=== PATIENT | male | born 1935 | race Caucasian/White ===

== ENCOUNTER 2017-01-06 17:14 | Observation (INO) ==
[2017-01-06] MEDS ORDERED: Aspirin 81 MG TAB.CHEW PO ONE (17:31)
--- NOTE | 2017-01-06 17:38 | Emergency Department Note ---
Disposition Clinical Impression: Chest pain Qualifiers: Chest pain type: unspecified Qualified Code(s): R07.9 - Chest pain, unspecified Disposition: Admitted As Inpatient Condition: Fair Referrals: Bruce Mclean MD [Primary Care Provider] - Forms: ED Satisfaction Letter Time of Disposition: 18:53 General Adult HPI - General Chief complaint: ED Chest Pain Stated complaint: C/P-L arm pain Time Seen by Provider: 01/06/17 17:30 Source: patient, family Mode of arrival: ambulatory Limitations: no limitations Nursing Notes Reviewed: Yes Vital Signs Reviewed: Yes - History of Present Illness HPI Narrative: Patient is an 81-year-old male with a history of a triple bypass done in the and hypertension presenting to the ER for chest pain that started 2 hours ago. She describes the chest pain as left-sided and radiating into his left arm is aching 5 out of 10 when it is occurring. He is currently a symptomatically at this time. States the chest pain was worse with exertion. Denies nausea, vomiting, diaphoresis. Patient has had not had a cardiac workup for several years. Takes one baby aspirin a day. Denies any cough, fever, chills, recent travels, recent surgeries. The patient does have bilateral lower extremity swelling however according to his spouse and himself this is a chronic issue and he has been on Lasix for the past. He is no longer on Lasix. Pain Scale: 0 - Related Data Home Medications Medication Instructions Recorded Confirmed Amlodipine Besylate 01/13/16 Aspirin 01/13/16 01/13/16 Carvedilol 01/13/16 Hydrochlorothiazide 01/13/16 Lipitor 01/13/16 Previous Rx's Medication Instructions Recorded GuaiFENesin/Codeine [Robitussin 5 ml PO Q6HR PRN #120 ml 01/13/16 w/Codeine] Polyethylene Glycol 3350 [MiraLAX] 17 gm PO BID 3 Days 01/13/16 cephALEXin [Keflex] 500 mg PO QID #40 capsule 01/13/16 Allergies Allergy/AdvReac Type Severity Reaction Status Date / Time lisinopril Allergy Cough Verified 01/13/16 18:43 Sulfa (Sulfonamide Allergy Hives Verified 01/13/16 18:43 Antibiotics) All systems ED: reviewed and negative except as stated. Constitutional: Denies: fever, chills Cardiovascular: Reports: chest pain, dyspnea on exertion. Denies: palpitations , syncope Respiratory: Denies: cough, dyspnea, wheezes Gastrointestinal: Denies: abdominal pain, nausea, vomiting Musculoskeletal: Denies: back pain Integumentary: Denies: rash Past Medical History - Past Medical History Medical history: Reports: coronary artery disease, hypertension Psychiatric history: Reports: no psych history - Social History Smoking Status: Never smoker Smokeless Tobacco Status: No Alcohol use: Reports: none Physical Exam No acute distress at this time. He is sitting up in bed and speaking in full sentences. Patient is pleasant. - General Limitations: no limitations General appearance: alert, in no apparent distress - Head Head exam: atraumatic, normocephalic, normal inspection - Eye Eye exam: Present: normal appearance, PERRL, EOMI - ENT ENT exam: normal exam, normal oropharynx, mucous membranes moist - Neck Neck exam: Present: normal inspection, full ROM, trachea midline - Chest Chest inspection: Present: normal inspection, symmetric chest wall rise. Absent : tenderness - Respiratory Respiratory exam: Present: normal lung sounds bilaterally. Absent: respiratory distress - Cardiovascular Cardiovascular exam: Present: regular rate, normal rhythm, normal heart sounds - Abdominal Exam Abdominal exam: Present: soft, Non-Tender, normal bowel sounds. Absent: guarding, rebound, rigidity - Extremities Exam Extremities exam: Present: full ROM, pedal edema (Bilateral 1+ pitting edema.). Absent: tenderness, normal capillary refill, calf tenderness - Expanded Lower Extremity Exam Neurovascular/Tendon exam: Present: normal capillary refill. Absent: pulse deficit - Back Exam Back exam: Present: normal inspection, full ROM. Absent: tenderness - Neurological Exam Neurological exam: Present: alert, oriented X3 - Psychiatric Psychiatric exam: Present: normal affect, normal mood - Skin Skin exam: Present: warm, dry, intact, normal color Course Course Narrative: Patient is a 1-year-old male with a history of hypertension and CABG presenting with left-sided chest pain that has been going on 2 hours ago that is now resolved. My plan is to do a cardiac workup of the patient. - Reevaluation(s) Reevaluation #1: Patient's blood pressure still in the 190s over 110s. I gave him 10 mg of labetalol and is down to the 160s over 90s. Time: 18:48 Vital Signs Temperature 97.8 F 01/06/17 17:17 Pulse Rate 77 01/06/17 17:17 Respiratory Rate 18 01/06/17 17:17 Blood Pressure 188/100 01/06/17 17:17 O2 Sat by Pulse Oximetry 93 01/06/17 17:17 Temperature 97.8 F 01/06/17 17:17 Pulse Rate 58 01/06/17 18:47 Respiratory Rate 16 01/06/17 18:47 Blood Pressure 166/78 01/06/17 18:47 O2 Sat by Pulse Oximetry 95 01/06/17 18:47 Oxygen Delivery Oxygen Delivery Room Air Medical Decision Making - Medical Records Medical records reviewed: Yes I reviewed the patient's medical records. - Lab Data Lab results reviewed: Yes I reviewed the patient's lab results. Result diagrams: 01/06/17 17:22 01/06/17 17:22 Lab Results 01/06/17 01/06/17 01/06/17 Range/Units 17:22 17:22 17:22 WBC 4.0 L (4.3-11.1) K/mcL RBC 4.79 (4.19-5.50) M/mcL Hgb 14.1 (12.9-16.9) g/dL Hct 42.4 (37.5-50.1) % MCV 88.5 (83.0-100.0) fL MCH 29.4 (28.0-33.3) pg MCHC 33.3 (31.6-35.5) g/dL RDW 13.0 (11.5-14.5) % Plt Count 75 L (140-400) K/mcL MPV 12.0 (9.4-12.4) fL Immature Gran % 1.0 (0-4) % Seg Neutrophils % 22.1 % Lymphocytes % 54.2 % Monocytes % 20.0 % Eosinophils % 2.2 % Basophils % 0.5 % Neutrophils # 0.9 L (1.6-8.9) K/mcL Lymphocytes # 2.2 (0.6-4.6) K/mcL Monocytes # 0.8 (0.0-1.3) K/mcL Eosinophils # 0.1 (0.0-0.6) K/mcL Basophils # 0.0 (0.0-0.2) K/mcL Platelet Estimate Decreased L (Normal) Sodium 138 (136-145) mEq/L Potassium 4.1 (3.5-4.5) mEq/L Chloride 107 (98-109) mEq/L Carbon Dioxide 26 (19-29) mEq/L BUN 19 (8-26) mg/dL Creatinine 0.99 (0.72-1.25) mg/dL Est GFR ( Amer) > 60 (> 60) Est GFR (Non-Af Amer) > 60 (> 60) BUN/Creatinine Ratio 19 (6-26) Glucose 104 H (70-99) mg/dL Calculated Osmolality 289 (280-300) Calcium 9.3 (8.6-10.8) mg/dL Troponin I (0-0.03) ng/mL B-Natriuretic Peptide 106 H (0-100) pg/mL 01/06/17 Range/Units 17:22 WBC (4.3-11.1) K/mcL RBC (4.19-5.50) M/mcL Hgb (12.9-16.9) g/dL Hct (37.5-50.1) % MCV (83.0-100.0) fL MCH (28.0-33.3) pg MCHC (31.6-35.5) g/dL RDW (11.5-14.5) % Plt Count (140-400) K/mcL MPV (9.4-12.4) fL Immature Gran % (0-4) % Seg Neutrophils % % Lymphocytes % % Monocytes % % Eosinophils % % Basophils % % Neutrophils # (1.6-8.9) K/mcL Lymphocytes # (0.6-4.6) K/mcL Monocytes # (0.0-1.3) K/mcL Eosinophils # (0.0-0.6) K/mcL Basophils # (0.0-0.2) K/mcL Platelet Estimate (Normal) Sodium (136-145) mEq/L Potassium (3.5-4.5) mEq/L Chloride (98-109) mEq/L Carbon Dioxide (19-29) mEq/L BUN (8-26) mg/dL Creatinine (0.72-1.25) mg/dL Est GFR ( Amer) (> 60) Est GFR (Non-Af Amer) (> 60) BUN/Creatinine Ratio (6-26) Glucose (70-99) mg/dL Calculated Osmolality (280-300) Calcium (8.6-10.8) mg/dL Troponin I 0.02 (0-0.03) ng/mL B-Natriuretic Peptide (0-100) pg/mL - Radiology Data Radiology results reviewed: Yes I reviewed the patient's radiology results. Chest X-Ray 01/06/17 17:31 IMPRESSION: 1. No acute cardiopulmonary disease. D/ / 01/06/2017 18:12:22 Dianne Sunshine MD / juan carlos Interpreting Provider: Dianne Sunshine MD - EKG Data EKG #1 EKG attestation: Yes I reviewed and interpreted this EKG. EKG results narrative: I interpret this EKG is sinus rhythm at a rate of 76. Normal axis. ID is [id number], QRS is 88, QT is 355 these are within normal limits. EKG has nonspecific ST wave abnormalities however no signs of ischemia or infarction. This is unchanged when compared to the EKG done on 12/11/2014. Attestation Statement - Attestation Attestation: I examined this patient and my medical decision-making was reviewed with the Resident Physician. I agree with the documented findings, disposition and treatment plan as described except to the extent set forth below. Patient to ED with chest pain radiating to the left arm. History of quadruple bypass in 1993. He has had stress tests and her Symptoms but he states it has been many years. His pain resolved prior to his arrival here. On exam he sitting on the side of the bed in no acute distress with clear lungs. Plan. Cardiac workup. Admit to medicine.
[2017-01-06 18:06] LABS: Basophils % 0.5 %; Eosinophils # 0.1 K/mcL (0.0-0.6); Eosinophils % 2.2 %; Hematocrit 42.4 % (37.5-50.1); Hemoglobin 14.1 g/dL (12.9-16.9); Lymphocytes # 2.2 K/mcL (0.6-4.6); Lymphocytes % 54.2 %; Mean Corpuscular HGB Conc 33.3 g/dL (31.6-35.5); Mean Corpuscular Hemoglobin 29.4 pg (28.0-33.3); Mean Corpuscular Volume 88.5 fL (83.0-100.0); Monocytes # 0.8 K/mcL (0.0-1.3); Neutrophils # 0.9 K/mcL (1.6-8.9); Platelet Count 75 K/mcL (140-400); Red Blood Count 4.79 M/mcL (4.19-5.50); Segmented Neutrophils % 22.1 %
[2017-01-06 18:15] LABS: BUN/Creatinine Ratio 19 (6-26); Blood Urea Nitrogen 19 mg/dL (8-26); Calcium 9.3 mg/dL (8.6-10.8); Carbon Dioxide 26 mEq/L (19-29); Chloride 107 mEq/L (98-109); Glucose 104 mg/dL (70-99); Osmolality,Calculated 289 (280-300); Potassium 4.1 mEq/L (3.5-4.5); Sodium 138 mEq/L (136-145); eGFR For African Americans > 60 (> 60); eGFR For Non-African Americans > 60 (> 60)
[2017-01-06] MEDS ORDERED: *HR* Labetalol 20 MG/4 ML SYRINGE IVP ONE ×2 (18:27→18:29)
[2017-01-06 18:36] LABS: Platelet Estimate Decreased (Normal)
[2017-01-06] MEDS ORDERED: Acetaminophen 325 MG TABLET PO PRN (20:31)
--- NOTE | 2017-01-06 20:38 | Internal Med History&Physical ---
<Fabiana Coto - Last Filed: 01/06/17 21:28> Date of Encounter: 01/06/17 Time of Encounter: 20:00 Assessment and Plan (1) Chest pain Current visit: Yes Status: Acute - Left chest and left upper arm ache, aggravated by exertion and alleviated by rest, similar to angina in the past. - Likely stable angina but patient does have significant CAD history and risk factors. - First troponin in ED is negative and EKG showed no significant ischemic change compared to prior one from 12/11/14. - Currently no chest pain/discomfort. - Continue to trend troponin. - Continue aspirin, Coreg, Lipitor. Add nitroglycerin prn chest pain. - Admit to hospital for close monitoring with telemetry and further work-up including stress test and echocardiogram. Total time spent on admission: 40 minutes. Qualifiers: Chest pain type: unspecified Qualified Code(s): R07.9 - Chest pain, unspecified (2) Hypertensive urgency Current visit: Yes Status: Acute - BP as high as 199/90 in ED. - Patient reports having white coat hypertension and has not gotten his PM dose of Coreg yet. - Slightly improved after labetalol IV in ED. - Continue home dose Coreg and Norvasc. Add hydralazine IV prn SBP > 160. - Continue to monitor. (3) CAD (coronary artery disease) Current visit: Yes Status: Chronic - S/p 4-vessel CABG in 1992. - Continue aspirin, Coreg, Lipitor. Qualifiers: Coronary Disease-Associated Artery/Lesion type: [place] artery [place] vs. transplanted heart: [place] heart Associated angina: with unspecified angina Qualified Code(s): I25.119 - Atherosclerotic heart disease of [place] coronary artery with unspecified angina pectoris (4) Hyperlipidemia Current visit: Yes Status: Chronic - Check lipid panel. - Continue Lipitor. Qualifiers: Hyperlipidemia type: unspecified Qualified Code(s): E78.5 - Hyperlipidemia , unspecified (5) GERD (gastroesophageal reflux disease) Current visit: Yes Status: Chronic - Patient reports occasional acid reflex and heartburn at home but not on any medication. - Pepcid during hospital stay. Qualifiers: Esophagitis presence: esophagitis presence not specified Qualified Code(s) : K21.9 - Gastro-esophageal reflux disease without esophagitis (6) DVT prophylaxis Current visit: Yes Status: Acute - SQ heparin. Internal Medicine - H&P: HPI Chief complaint: Left arm and chest discomfort Admitted From: Emergency Dept Plans for Post Hospital Care: Home History of present illness: Mr. Ambrocio is a 81 year old male with PMH of HTN, HLD, CAD s/p 4-V CABG 1992. Patient presented with complaint of left arm and chest discomfort. 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 The discomfort is aggravated by movement and alleviated by rest. Patient states the discomfort is similar to the angina he had before his CABG. Patient denies diaphoresis, lightheadedness, syncope, palpitation, worsening edema or fatigue. The discomfort resolved before patient came to [facility] ED. Patient reports last stress test (exercise) was done more than 5 years ago and he recalls no echocardiogram done in the past. Patient reports having white coat hypertension and his usual SBP is between 120s and 130s. Patient also has known leukopenia and thrombocytopenia for which he is seeing hematology at [place] and work-up were negative so far. In ED, patient has troponin 0.02 and EKG showed no significant ischemic change compared to prior EKG on 12/11/14. Patient was noted to have BP as high as 199/ 90 in ED. Patient received aspirin 324 mg and IV labetalol 15 mg in ED. Past Med Surg Social Fam HX - Past Medical History Source: patient, old records reviewed Medical history: coronary artery disease, hyperlipidemia, hypertension Psychiatric history: no psych history - Past Surgical History Surgical History: angioplasty/stent (Carotid angioplasty), carotid endarterectomy, coronary bypass (CABG), knee replacement (left) - Social History Smoking Status: Former smoker Smokeless Tobacco Status: No Alcohol use: occasionally - Family History Father Living Status: Hx Family Cardiac Disorders: Yes ([place]) Hx Family Neurologic Disorders: Yes (CV[place]) Mother Living Status: Hx Family Cardiac Disorders: Yes ([place]) Brother Living Status: Hx Family Neurologic Disorders: Yes (CVA) Internal Medicine - H&P: Meds Amlodipine Besylate 10 mg PO DAILY 01/13/16 [History] Aspirin Enteric Coated [Aspirin EC] 81 mg PO DAILY 01/13/16 [History] Atorvastatin Calcium [Lipitor] 20 mg PO HS 01/13/16 [History] Carvedilol [Coreg] 25 mg PO BID 01/13/16 [History] Multivitamin [Multi-Day Vitamins] 1 each PO DAILY 01/06/17 [History] 3 Allergy/AdvReac Type Severity Reaction Status Date / Time lisinopril Allergy Cough Verified 01/13/16 18:43 Sulfa (Sulfonamide Allergy Hives Verified 01/13/16 18:43 Antibiotics) All Systems PM: A 10-system review of systems was performed and is negative for pertinent findings except as documented above in the HPI. - Constitutional Constitutional: no anorexia, no chills, no fever(s) - EENT Eyes: no change in vision Ears: no decreased hearing Nose, mouth and throat: no dysphagia, no odynophagia - Cardiovascular Cardiovascular ROS IM: as per HPI, chest pain, no lightheadedness, no palpitations, no syncope - Respiratory Respiratory: cough (dry cough), dyspnea, no hemoptysis, no excessive phlegm production - Gastrointestinal Gastrointestinal: heartburn, no abdominal pain, no diarrhea, no hematochezia, no melena, no nausea, no vomiting - Genitourinary Genitourinary ROS male: no difficulty urinating, no dysuria, no hematuria - Musculoskeletal Musculoskeletal ROS IM: no arthralgias, no myalgias - Integumentary Integumentary IM: no pruritus, no rash - Neurological Neurological ROS: no focal weakness, no numbness, no tingling - Hematologic/Lymphatic Hematologic/Lymphatic: easy bruising, no easy bleeding - Constitutional Vitals: Temp Pulse Resp BP Pulse Ox 0 F L 59 18 165/83 98 01/06/17 19:57 01/06/17 19:05 01/06/17 19:57 01/06/17 19:57 01/06/17 19:05 General appearance: Present: cooperative, A&O X 3, no acute distress, answers questions appropriately - Head Head exam: Present: atraumatic, normocephalic - Eye Eye exam: Present: EOMI, PERRL, conjuntiva pink, sclera anicteric - Neck Neck exam general surgery: Present: supple, trachea midline. Absent: lymphadenopathy - Respiratory Respiratory exam: Present: CTAB. Absent: accessory muscle use, rales, rhonchi, wheezes - Cardiovascular Cardiovascular exam: Present: RRR, +S1, +S2. Absent: diastolic murmur, gallop, rubs, systolic murmur - GI/Abdominal GI/Abdominal exam: Present: normal bowel sounds, soft, no peritoneal signs. Absent: distended, tenderness - Extremities Exam Extremities exam: Present: pedal edema (Mild BLE non-pitting edema), warm, radial pulses palpable and symmetrical. Absent: calf tenderness, cyanotic - Neurological Exam Neurological exam: Present: CN II-XII intact, oriented X3, no focal deficits. Absent: pronater drift, facial droop, speech deficit - Skin Skin exam: Present: dry, intact, warm Internal Med - H&P Results - Labs CBC & Chem 7: 01/06/17 17:22 01/06/17 17:22 - EKG Data Prior EKG available for review: yes When compared to previous EKG: there is no significant change Interpretation IM: normal EKG EKG comments: 01/06/17 21:29 No significant ischemic change compared to prior EKG from 12/11/14 <Marcello Jerez - Last Filed: 01/06/17 22:55> Date of Encounter: 01/06/17 Internal Medicine - H&P: HPI History of present illness: Mr. Ambrocio is a 81 year old male All Systems PM: A 10-system review of systems was performed and is negative for pertinent findings except as documented above in the HPI. - Constitutional Vitals: Temp Pulse Resp BP Pulse Ox 97.6 F 62 16 176/75 96 01/06/17 20:43 01/06/17 20:43 01/06/17 20:43 01/06/17 20:43 01/06/17 20:43 Internal Med - H&P Results - Labs CBC & Chem 7: 01/06/17 17:22 01/06/17 17:22 - Attending Attestation I examined this patient and my medical decision-making was reviewed with the Resident Physician, Dr. Fabiana Coto. I agree with the documented findings, disposition and treatment plan as described except to the extent set forth below. I have independently obtained history and examined the patient and my findings are summarized below: Patient is currently chest pain-free. On exam he is in no acute distress. Heart examination reveals regular rate and rhythm S1-S2 no murmurs. Lungs are clear. Troponin is negative. EKG reviewed personally shows normal sinus rhythm at 76 bpm with [address] depressions in leads 1 and aVL. Unchanged from previous EKG. Plan: Observation, trend troponin. Treat hypertensive urgency with Coreg and Norvasc and as needed hydralazine. We will obtain a stress test in the morning.
[2017-01-06] MEDS ORDERED: Nitroglycerin 0.4 MG TAB.SUBL SL PRN (21:42)
[2017-01-06] MEDS: *HR* Heparin 5,000 UNIT/ML VIAL SQ SCH ×2 (21:59→22:08)
[2017-01-06] MEDS: Famotidine 20 MG TABLET PO SCH (21:59)
[2017-01-07] MEDS: *HR* Heparin 5,000 UNIT/ML VIAL SQ SCH ×2 (05:33→14:52)
[2017-01-07] MEDS ORDERED: Regadenoson 0.4 MG/5 ML SYRINGE IVP ONE (05:46)
[2017-01-07 07:40] LABS: Hematocrit 43.7 % (37.5-50.1); Hemoglobin 14.2 g/dL (12.9-16.9); Mean Corpuscular HGB Conc 32.5 g/dL (31.6-35.5); Mean Corpuscular Hemoglobin 28.7 pg (28.0-33.3); Mean Corpuscular Volume 88.3 fL (83.0-100.0); Red Blood Count 4.95 M/mcL (4.19-5.50)
[2017-01-07 07:42] LABS: Platelet Count 82 K/mcL (140-400)
[2017-01-07 08:43] LABS: BUN/Creatinine Ratio 14 (6-26); Blood Urea Nitrogen 13 mg/dL (8-26); Calcium 9.4 mg/dL (8.6-10.8); Carbon Dioxide 24 mEq/L (19-29); Chloride 108 mEq/L (98-109); Chol/HDL Ratio 3.1 (0-4.9); Cholesterol 110 mg/dL (< 200); Glucose 101 mg/dL (70-99); HDL Cholesterol 35 mg/dL (40-59); LDL Cholesterol,Calculated 59 mg/dL (0-99); Osmolality,Calculated 288 (280-300); Potassium 3.6 mEq/L (3.5-4.5); Sodium 139 mEq/L (136-145); Triglycerides 82 mg/dL (< 150); eGFR For African Americans > 60 (> 60); eGFR For Non-African Americans > 60 (> 60)
[2017-01-07 09:05] LABS: Thyroid Stimulating Hormone 3.236 mcIU/mL (0.350-4.840)
[2017-01-07] MEDS: Aspirin Enteric Coated 81 MG Tablet PO SCH (09:56)
[2017-01-07] MEDS: Famotidine 20 MG TABLET PO SCH ×2 (09:57→20:27)
[2017-01-07] MEDS: amLODIPine 5 MG TABLET PO SCH (09:57)
--- NOTE | 2017-01-07 11:44 | Cardiology Consult Note ---
Date of Encounter: 01/07/17 Time of Encounter: 11:34 Assessment and Plan (1) Abnormal stress test Current Visit: Yes Status: Acute Low level pharmacologic stress test showed a perfusion defect during stress involving the basal-distal lateral wall and anterolateral wall representing mild to moderate ischemia. Gated EF 65%. Typical chest pain symptoms described. He is currently pain free. LHC R/B/A discussed. He repoted he has thrombocytopenia and underwent work-up in the past and was told he may need PLT infusion prior to procedures. Plt 82 today. 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 Discussed with Dr. Gil, recommends hematology consult for preparation for LHC. He also needs better blood pressure control. Noted to have allergy to lisinopril d/t cough. Add losartan. Plan for possible LHC in AM. (2) Chest pain Current Visit: Yes Status: Acute Now chest pain free. Typical chest pain described. Troponin negative x 3. EKG with no acute changes. Denies recent work-up. Qualifiers: Chest pain type: unspecified Qualified Code(s): R07.9 - Chest pain, unspecified (3) CAD (coronary artery disease) Current Visit: Yes Status: Chronic H/o 4V CABG in 1992. Last stress test was 4-5 years ago[address] with Dr. Regalado. Continue asa, statin, and bb. Qualifiers: Coronary Disease-Associated Artery/Lesion type: [place] artery [place] vs. transplanted heart: [place] heart Associated angina: with unspecified angina Qualified Code(s): I25.119 - Atherosclerotic heart disease of [place] coronary artery with unspecified angina pectoris (4) Hypertension Current Visit: Yes Status: Acute Add losartan. Continue norvasc and carvedilol. Low sodium diet. Qualifiers: Hypertension type: essential hypertension Qualified Code(s): I10 - Essential (primary) hypertension Discussion w patient/family: The assessment and plan as outlined above was discussed with the patient and/or family members who expressed understanding and agreement. All questions were answered. Thank you for involving us in the care of your patient. Please call with any questions. History of Present Illness Consult date: 01/07/17 Requesting physician: Tiffanie Carreon Consult reason: Abnormal stress test Chief complaint: Chest pain History of present illness: Mr. Ambrocio is a 81 year old male with a history of CAD s/p 4V CABG, carotid artery disease s/p left CEA in 2004, HTN, HLD, solitary kidney, and bicytopenia who presented with chest pain. He c/o left arm aching when he woke up from his sleep the morning before last. 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 Regalado, yesterday. He had an EKG that was found to be normal. Said he felt better. That evening he was walking to his mailbox when he developed left chest pain and SOB. He walked back to his house and sat down when his symptoms improved. Later he went to his adventist to help clean when he developed pain again so he presented to the ER. Initial work-up included troponin that was found to negative. EKG shows SR with no acute ST changes. He underwent stress test this morning that was found to be abnormal. Cardiology consulted for further evaluation. Past Med Surg Social Fam HX - Past Medical History Medical history: coronary artery disease, hyperlipidemia, hypertension, other ( thrombocytopenia, solitary kidney. ) Psychiatric history: no psych history - Past Surgical History Surgical History: angioplasty/stent, carotid endarterectomy, coronary bypass ( CABG), knee replacement - Social History Smoking Status: Former smoker Smokeless Tobacco Status: No Alcohol use: occasionally Drug use: none - Family History Father Living Status: Age at : 56 Cause of : [place] Hx Family Cardiac Disorders: Yes ([place]) Hx Family Neurologic Disorders: Yes (CVA) Mother Living Status: Age at : 78 Cause of : [place] Hx Family Cardiac Disorders: Yes ([place]) Brother Living Status: Age at : 78 Cause of : [place] Hx Family Cardiac Disorders: Yes ([place]) Hx Family Respiratory Disorders: No Hx Family Cancer: No Hx Family GI Disorders: No Hx Family Genitourinary Disorders: No Hx Family Endocrine Disorder: No Hx Family Musculoskeletal Disorders: Yes (arthritis) Hx Family Neuromuscular Disorders: No Hx Family Neurologic Disorders: Yes (CVA) Hx Family HEENT Disorders: No Hx Family Autoimmune Disorders: No Hx Family Reproductive Disorders: No Hx Family Psychosocial Disorders: No Hx Family Medical Disorders: No Medications and Allergies Amlodipine Besylate 10 mg PO DAILY 01/13/16 [History] Aspirin Enteric Coated [Aspirin EC] 81 mg PO DAILY 01/13/16 [History] Atorvastatin Calcium [Lipitor] 20 mg PO HS 01/13/16 [History] Carvedilol [Coreg] 25 mg PO BID 01/13/16 [History] Multivitamin [Multi-Day Vitamins] 1 each PO DAILY 01/06/17 [History] 3 Allergy/AdvReac Type Severity Reaction Status Date / Time lisinopril Allergy Cough Verified 01/13/16 18:43 Sulfa (Sulfonamide Allergy Hives Verified 01/13/16 18:43 Antibiotics) All Systems Review: A 10-system review of systems was performed and is negative for pertinent findings except as documented above in the HPI. Physical Examination Vital Signs, Last 4 Hours Temp Pulse Resp BP Pulse Ox 01/07/17 10:53 97.6 F 60 16 178/78 94 General: Conversant, No Apparent Distress HEENT: Atraumatic, Normocephaly, Mucus Membranes Moist Neck: No JVD, Normal carotid pulses Cardiac: Reg Rate and Rhythm, Normal S1 and S2, No Murmur Lungs: Normal Breath Sounds, No Wheeze, Rales, Rhonchi Neuro: Alert and responsive, No focal deficits noted Abdomen: Soft, Non-Tender Skin: No rashes noted on visualized skin Musculoskeletal: No Chest Wall Tenderness Extremities: No Clubbing, No Cyanosis, No Edema, Normal Pulses Results 01/07/17 07:01 01/07/17 07:01 Lab Results 01/06/17 01/07/17 01/07/17 23:13 07:01 07:01 WBC 3.5 L Hgb 14.2 Hct 43.7 Plt Count 82 L Sodium 139 Potassium 3.6 Chloride 108 Carbon Dioxide 24 BUN 13 Creatinine 0.90 Glucose 101 H Calcium 9.4 Troponin I 0.01 TSH 3.236 01/07/17 07:01 WBC Hgb Hct Plt Count Sodium Potassium Chloride Carbon Dioxide BUN Creatinine Glucose Calcium Troponin I 0.03 TSH - Imaging and Cardiology Stress Test: report reviewed - EKG Interpretation EKG results cardiology: personally reviewed (Sr with no acute ST changes.) Consult Discharge Plan - Plan Referrals: Bruce Mclean MD [Primary Care Provider] - 01/16/17 10:15 am
--- NOTE | 2017-01-07 12:08 | Nuclear Medicine Stress Report ---
Low Level Regadenoson Name: Panfilo Ambrocio Date of Study: 01/07/2017 Date: 1935 Ht: 66.0 in Medical Record#: [id number] Age: 81 Wt: 163.0 lb Gender: Male Order #: [id number] Location: [facility] Room: [facility] Supervising Provider: Sheba Mathews CNP Reading Physician: Pavithra Adan DO Ordering Physician: Kristin Fitzgerald CNP Primary Care Physician: Bruce Mclean MD Stress Technologist: Raya Jack INTEGRATION ANALYST, CCT Nuisance Wildlife Control Operator: Liz Lizarraga Indications: Chest Pain Impression: There is a perfusion defect during stress involving the basal-distal lateral wall and anterolateral wall representing mild-moderate ischemia. Low level exercise/ pharmacologic stress ECG is negative for ischemia at level of heart rate achieved. Gated EF = 65%. Findings communicated to ordering provider. History: Hypertension Hypercholesteremia History of Coronary Artery Bypass Surgery Stress Test Summary: Stress Test Type: Low level pharmacologic Regadenoson 0.4mg/5ml given IV Baseline Information: Initial Heart Rate: 69 Blood Pressure: 158/64 Stress Information: Test Terminated Due to (primary): As per protocol Maximum Blood Pressure: 172/80 Maximum Heart Rate: 90 Percent Maximum Heart Rate Achieved: 65 Double Product: [id number] Symptoms: No chest symptoms Nuclear Summary: SPECT myocardial perfusion imaging using Tc99m Sestamibi given intravenously was performed at rest and following cardiac stress testing. The resting images were obtained following initial dose of 10.8 mCi. Following stress an additional dose of 35.1 mCi was given at peak exercise or 30 seconds post regadenoson infusion. Medication Given: Time Medication Dose Units Route Findings: Stress Note * Resting ECG demonstrated normal sinus rhythm with borderline first degree AVB. * Low level exercise/ pharmacologic stress ECG is negative for ischemia at level of heart rate achieved. * Patient had no chest pain during stress. * No arrhythmias were noted during stress. Infrequent PVCs during rest and recovery. Hemodynamic responses * Normal hemodynamic responses to low level exercise plus pharmacologic stress. Study Quality * Study quality was fair. Gated EF % * Gated EF = 65%. Left Ventricle * The left ventricle is not dilated. TID * No evidence of transient ischemic dilatation. Lung Uptake * There is no evidence of increase lung uptake. PERFUSION * There is a mild-moderate intensity perfusion defect during stress involving the basal-mid and partially distal lateral wall and anterolateral wall. * There is a possible fixed defect of near absent intensity involving the basal inferior wall. Findings may represent infarct. * Other segments demonstrate normal rest and stress perfusion. Updated by Pavithra Adan on 01/07/2017 9:57:31 AM electronically signed on 01/07/2017 10:03:30 AM with status of Final
--- NOTE | 2017-01-07 15:12 | Oncology Inp Consult Note ---
<Tiffany Conte E - Last Filed: 01/07/17 14:59> Date of Encounter: 01/07/17 Time of Encounter: 14:15 Assessment and Plan (1) Thrombocytopenia Status: Chronic Assessment and plan: Current platelets 82,000-this level should be adequate for patient to have heart catheterization. He should continue to follow with Hematology at [facility]. (2) Neutropenia Status: Chronic Assessment and plan: Upon discharge should continue to f/u with Hematology at [facility]. He will be seen by Dr. Tyler today also. Qualifiers: Neutropenia type: unspecified Qualified Code(s): D70.9 - Neutropenia, unspecified - Data of Consult Patient: new to practice Consult date: 01/07/17 Requesting Physician: Kristin Fitzgerald CNP Primary Care Provider: Bruce Mclean MD - Consult Narrative Reason for consult: Neutropenia and thrombocytopenia History of present illness: Mr. Ambrocio is a 81 year old male with a history of CAD, hyperlipidemia, hypertension, diverticulitis, from the cytopenia and neutropenia who was recently admitted through the emergency room with chest pain. The patient reports that he was seen yesterday morning at the cardiology office at that time he felt great and his exam was negative. He and his then had lunch and Yumits and tocario. Upon arriving at home he walk to the mailbox to get the mail and during that time he started having left-sided chest pain that was radiating into his left arm with pain increasing on exertion. He also has a history of having a carotid endarterectomy. He was a former smoker. Stress test indicated perfusion defect during stress involving basal distal lateral wall and anterior lateral wall with [id number] ischemia. His gated ejection fraction was 65%. D-Dimer [id number]. We have been asked to see the patient regarding the pancytopenia and neutropenia in relation to him having a heart catheterization. The patient reports that he has had neutropenia and from a cytopenia for about 8 years with a gradual decline. About 3 years ago he had a knee replacement at [facility] and at that time surgeon requested further evaluation by hematology prior to his having surgery. He was established that time with [facility] hematology. Most recently he was seen at [facility] by Dr. Sellers from [place]. He reports that he has had a bone marrow and MRI of spleen that were both negative. We do not have these reports to review. He states to date they have not found the causative factor. He denies ever having abnormal bleeding or needing to have platelet transfusion. He has had no major infections-just occasional sinus infection or bronchitis. He states he was treated several months ago for diverticulitis. WBC today 3.5, Platelets, 82,000. ANC on 01/06/17 900. Past Med Surg Social Fam HX - Past Medical History Source: patient, old records reviewed, obtained from family Medical history: coronary artery disease, hyperlipidemia, hypertension, other ( thrombocytopenia, neutropenia, diverticulitis, solitary kidney) Psychiatric history: no psych history - Past Surgical History Surgical History: angioplasty/stent, carotid endarterectomy, coronary bypass ( CABG), knee replacement - Social History Smoking Status: Former smoker Smokeless Tobacco Status: No Alcohol use: occasionally Drug use: none Occupational status: retired Current living situation: Home Activity Level: Independent ambulation Recent Out of Country Travel Within the Last 8 Weeks: No Exposure or Possible Exposure to Illness During Travel: No - Family History Father Living Status: Age at : 56 Cause of : [place] Hx Family Cardiac Disorders: Yes (DE) Hx Family Neurologic Disorders: Yes (CVA) Mother Living Status: Age at : 78 Cause of : [place] Hx Family Cardiac Disorders: Yes (DE) Brother Living Status: Age at : 78 Cause of : [place] Hx Family Cardiac Disorders: Yes (DE) Hx Family Respiratory Disorders: No Hx Family Cancer: No Hx Family GI Disorders: No Hx Family Genitourinary Disorders: No Hx Family Endocrine Disorder: No Hx Family Musculoskeletal Disorders: Yes (arthritis) Hx Family Neuromuscular Disorders: No Hx Family Neurologic Disorders: Yes (CVA) Hx Family HEENT Disorders: No Hx Family Autoimmune Disorders: No Hx Family Reproductive Disorders: No Hx Family Psychosocial Disorders: No Hx Family Medical Disorders: No Medications and Allergies Amlodipine Besylate 10 mg PO DAILY 01/13/16 [History] Aspirin Enteric Coated [Aspirin EC] 81 mg PO DAILY 01/13/16 [History] Atorvastatin Calcium [Lipitor] 20 mg PO HS 01/13/16 [History] Carvedilol [Coreg] 25 mg PO BID 01/13/16 [History] Multivitamin [Multi-Day Vitamins] 1 each PO DAILY 01/06/17 [History] 3 Allergy/AdvReac Type Severity Reaction Status Date / Time lisinopril Allergy Cough Verified 01/13/16 18:43 Sulfa (Sulfonamide Allergy Hives Verified 01/13/16 18:43 Antibiotics) Additional comments: Denies chest pain or shortness of breath. Oncology - Exam - Constitutional Vitals: Temp Pulse Resp BP Pulse Ox 97.6 F 60 16 178/78 94 01/07/17 10:53 01/07/17 10:53 01/07/17 10:53 01/07/17 10:53 01/07/17 10:53 General appearance: average body habitus, cooperative, no acute distress - Head Head exam: Present: atraumatic, normal inspection, normocephalic - ENT ENT exam: Present: mucous membranes moist - Neck Neck exam: Present: normal inspection - Respiratory Respiratory exam: Present: CTAB - Cardiovascular Cardiovascular exam: Present: RRR - GI/Abdominal GI/Abdominal exam: Present: normal bowel sounds, soft (non tender) - Extremities Exam Extremities exam: Present: normal capillary refill, normal inspection (no edema) - Neurological Exam Neurological exam: Present: alert, oriented X3 - Psychiatric Psychiatric exam: Present: normal affect, normal mood Oncology - Results Labs: Short CBC 01/07/17 Range/Units 07:01 WBC 3.5 L (4.3-11.1) K/mcL Hgb 14.2 (12.9-16.9) g/dL Hct 43.7 (37.5-50.1) % Plt Count 82 L (140-400) K/mcL BMP 01/07/17 07:01 Sodium 139 Potassium 3.6 Chloride 108 Carbon Dioxide 24 BUN 13 Creatinine 0.90 Glucose 101 H Calcium 9.4 Cardiac Enzymes 01/06/17 01/07/17 Range/Units 23:13 07:01 Troponin I 0.01 0.03 (0-0.03) ng/mL Consult Discharge Plan - Plan Referrals: Bruce Mclean MD [Primary Care Provider] - 01/16/17 10:15 am <Reagan Tyler - Last Filed: 01/08/17 07:50> Date of Encounter: 01/08/17 Assessment and Plan (1) Thrombocytopenia Status: Chronic Assessment and plan: I seen and examined Mr. Ambrocio and agree with Ms. Conte's assessment. 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 Per report, recent bone marrow aspirate and biopsy were unrevealing. This likely represents underlying hypersplenism/autoimmune related process although certainly an evolving low- grade MDS could be consideration. In either case, he may proceed to cardiac catheterization and intervention as deemed necessary by the cardiology team. He may receive full anticoagulation from my perspective. His platecount is adequate. Antiplatelet therapy can be utilized with no reservation from my perspective. He should return to the care of Dr. Sellers at [facility] upon discharge. We will continue to assist in his care while hospitalized here. - Data of Consult Requesting Physician: Kristin Fitzgerald CNP Primary Care Provider: Bruce Mclean MD Oncology - Exam - Constitutional Vitals: Temp Pulse Resp BP Pulse Ox 97.8 F 60 16 162/73 96 01/08/17 03:44 01/08/17 03:44 01/08/17 03:44 01/08/17 03:44 01/08/17 03:44 Oncology - Results Labs: Short CBC 01/08/17 Range/Units 03:11 WBC 3.9 L (4.3-11.1) K/mcL Hgb 13.2 (12.9-16.9) g/dL Hct 40.2 (37.5-50.1) % Plt Count 77 L (140-400) K/mcL Neutrophils # 1.1 L (1.6-8.9) K/mcL BMP 01/07/17 01/08/17 07:01 03:11 Sodium 139 141 Potassium 3.6 3.6 Chloride 108 110 H Carbon Dioxide 24 23 BUN 13 20 Creatinine 0.90 0.97 Glucose 101 H 89 Calcium 9.4 9.1 Cardiac Enzymes 01/07/17 Range/Units 07:01 Troponin I 0.03 (0-0.03) ng/mL
[2017-01-07 15:38] LABS: INR 1.2; Prothrombin Time 13.1 Seconds (9.4-12.1)
--- NOTE | 2017-01-07 15:39 | Internal Med Progress Note ---
Date of Encounter: 01/07/17 Time of Encounter: 15:00 - Assessment and plan (1) Chest pain Current Visit: Yes Status: Acute Assessment and plan: Patient denies chest pain or shortness of breath at this time. Chest x-ray negative. Stress test abnormal-cardiology has been brought on board. Decision was made to proceed with a left heart catheter tomorrow. We will continue to monitor the patient's blood pressures. Cleared for procedure per oncology/ hematology. History of CABG 4 in 1992. Echocardiogram revealing ejection fraction of 60% with mild diastolic dysfunction. Patient euvolemic on examination. Nothing by mouth at midnight, left heart catheter tomorrow pending clinical outcomes. ITS Impressions Chest X-Ray 01/06/17 17:31 IMPRESSION: 1. No acute cardiopulmonary disease. D/ / 01/06/2017 18:12:22 Dianne Sunshine MD / juan carlos Interpreting Provider: Dianne Sunshine MD Low Level Regadenoson Date of Study: 01/07/2017 Impression: There is a perfusion defect during stress involving the basal-distal lateral wall and anterolateral wall representing mild-moderate ischemia. Low level exercise/ pharmacologic stress ECG is negative for ischemia at level of heart rate achieved. Gated EF = 65%. Findings communicated to ordering provider. Echo with Saline Contrast Date of Study: 01/07/2017 Impressions: LVEF 60%. Normal left ventricular size and systolic function. There is evidence of mild diastolic dysfunction of the left ventricle. Normal right ventricular size and function. Mild aortic regurgitation. Mild mitral regurgitation. No pulmonary hypertension. There is no evidence of a PFO with agitated saline contrast. (2) Abnormal stress test Current Visit: Yes Status: Acute (3) Leukopenia Current Visit: Yes Status: Chronic Assessment and plan: Chronic for this patient. Is followed at [facility]. and patient states that he has had an extensive workup including several MRIs and a bone marrow biopsy all unremarkable. Seen by oncology and cleared for left heart catheter for tomorrow. (4) Thrombocytopenia Current Visit: Yes Status: Chronic Assessment and plan: Chronic, stable, no signs of active bleeding. See prior note for leukopenia (5) CAD (coronary artery disease) Current Visit: Yes Status: Chronic Qualifiers: Coronary Disease-Associated Artery/Lesion type: bypass graft [place] vs. transplanted heart: [place] heart Associated angina: with unspecified angina Qualified Code(s): I25.709 - Atherosclerosis of coronary artery bypass graft(s) , unspecified, with unspecified angina pectoris (6) Hypertension Current Visit: Yes Status: Chronic Assessment and plan: Uncontrolled. At home, patient is on carvedilol 25 mg twice a day, amlodipine 10 mg daily. Cardiology has added losartan 12.5 mg daily as well as hydralazine IV as needed. SHAUNNA inhibitor cough noted. Patient stating he gets worked up when he has to have a lot of blood work and while he is in the hospital. This could also be a contributing factor. When I saw him, he had just received his losartan dosage 10-15 minutes prior, we will continue to trend and adjust medications as indicated. Qualifiers: Hypertension type: essential hypertension Qualified Code(s): I10 - Essential (primary) hypertension (7) Hypertensive urgency Current Visit: Yes Status: Acute (8) Hyperlipidemia Current Visit: Yes Status: Chronic Assessment and plan: Lipid panel unremarkable, recommend continue statin. Low-cholesterol diet. Qualifiers: Hyperlipidemia type: unspecified Qualified Code(s): E78.5 - Hyperlipidemia , unspecified (9) GERD (gastroesophageal reflux disease) Current Visit: Yes Status: Chronic Assessment and plan: Denies current symptoms. Qualifiers: Esophagitis presence: esophagitis presence not specified Qualified Code(s) : K21.9 - Gastro-esophageal reflux disease without esophagitis (10) DVT prophylaxis Current Visit: Yes Status: Acute Assessment and plan: Thrombocytopenia can be caused by/worsened by heparin, heparin discontinued at this time, will place IPCs. - Subjective Interval history: Patient seen and examined. On examination, patient resting supine in bed conversing with his . Patient stating that he is drained. He denies pain or shortness of breath at this time. He is endorsing a normal appetite. - Constitutional Vitals: Temp Pulse Resp BP Pulse Ox 97.8 F 56 18 180/68 94 01/07/17 15:07 01/07/17 15:07 01/07/17 15:07 01/07/17 15:07 01/07/17 15:07 General appearance: Present: cooperative, A&O X 3, pleasant, no acute distress, answers questions appropriately - Head Head exam: Present: atraumatic, normocephalic - Eye Eye exam: Present: PERRL, conjuntiva pink, sclera anicteric Pupils: Present: PERRL - Neck Neck exam general surgery: Present: supple, trachea midline. Absent: lymphadenopathy - Respiratory Respiratory exam: Present: CTAB. Absent: accessory muscle use, rales, respiratory distress, rhonchi, wheezes - Cardiovascular Cardiovascular exam: Present: RRR, +S1, +S2. Absent: diastolic murmur, gallop, rubs, systolic murmur - GI/Abdominal GI/Abdominal exam: Present: normal bowel sounds, soft, no peritoneal signs. Absent: distended, tenderness - Extremities Exam Extremities exam: Present: warm, radial pulses palpable and symmetrical. Absent : calf tenderness, cyanotic, pedal edema - Neurological Exam Neurological exam: Present: alert, CN II-XII intact, normal gait, oriented X3, no focal deficits, strengths equal and symetr throughout. Absent: pronater drift, facial droop, speech deficit - Skin Skin exam: Present: dry, intact, pallor, warm Internal Medicine: Result - Labs CBC & Chem 7: 01/07/17 07:01 01/07/17 07:01 Labs: Short CBC 01/07/17 Range/Units 07:01 WBC 3.5 L (4.3-11.1) K/mcL Hgb 14.2 (12.9-16.9) g/dL Hct 43.7 (37.5-50.1) % Plt Count 82 L (140-400) K/mcL [facility] 01/07/17 07:01 Sodium 139 Potassium 3.6 Chloride 108 Carbon Dioxide 24 BUN 13 Creatinine 0.90 Glucose 101 H Calcium 9.4 Cardiac Enzymes 01/06/17 01/07/17 Range/Units 23:13 07:01 Troponin I 0.01 0.03 (0-0.03) ng/mL Consult Discharge Plan - Plan Referrals: Bruce Mclean MD [Primary Care Provider] - 01/16/17 10:15 am
[2017-01-07 15:40] LABS: Activated Partial Thrombo Time 33.4 Seconds (26.0-36.0)
--- NOTE | 2017-01-07 18:33 | Electrocardiograph Report ---
[address] [address] Test Date: 2017-01-06 Pat Name: Panfilo Ambrocio Department: 104 Room: 3B Gender: M Internet Sourcer: JOSEPHINE : 1935 Requested By: Brenton Veliz Order Number: [id number] Reading MD: Pavithra Adan Measurements Intervals [place] Rate: 76 P: 92 VT: 192 QRS: -7 QRSD: 88 T: 54 QT: 355 QTc: 385 Interpretive Statements SINUS RHYTHM Electronically Signed On 01-07-2017 18:31:54 EDT by Pavithra Adan
[2017-01-08 03:57] LABS: Hemoglobin 13.2 g/dL (12.9-16.9); Mean Platelet Volume 12.2 fL (9.4-12.4)
[2017-01-08 03:59] LABS: Basophils % 0.5 %; Eosinophils # 0.1 K/mcL (0.0-0.6); Eosinophils % 2.1 %; Hematocrit 40.2 % (37.5-50.1); Immature Granulocytes % 0.3 % (0-4); Immature Platelets 7.8 % (1.1-6.1); Lymphocytes # 1.8 K/mcL (0.6-4.6); Lymphocytes % 45.9 %; Mean Corpuscular HGB Conc 32.8 g/dL (31.6-35.5); Mean Corpuscular Volume 88.4 fL (83.0-100.0); Monocytes # 0.9 K/mcL (0.0-1.3); Monocytes % 23.5 %; Neutrophils # 1.1 K/mcL (1.6-8.9); Red Blood Count 4.55 M/mcL (4.19-5.50); Red Cell Distribution Width 13.1 % (11.5-14.5); Segmented Neutrophils % 27.7 %
[2017-01-08 04:05] LABS: INR 1.2
[2017-01-08 04:14] LABS: Platelet Count 77 K/mcL (140-400)
[2017-01-08 04:17] LABS: BUN/Creatinine Ratio 21 (6-26); Blood Urea Nitrogen 20 mg/dL (8-26); Calcium 9.1 mg/dL (8.6-10.8); Carbon Dioxide 23 mEq/L (19-29); Chloride 110 mEq/L (98-109); Glucose 89 mg/dL (70-99); Osmolality,Calculated 294 (280-300); Potassium 3.6 mEq/L (3.5-4.5); Sodium 141 mEq/L (136-145); eGFR For African Americans > 60 (> 60); eGFR For Non-African Americans > 60 (> 60)
[2017-01-08 04:48] LABS: Platelet Estimate Decreased (Normal)
[2017-01-08 04:49] LABS: Large Platelets Present (Not Present)
[2017-01-08] MEDS: Aspirin Enteric Coated 81 MG Tablet PO SCH (08:05)
[2017-01-08] MEDS: amLODIPine 5 MG TABLET PO SCH (08:06)
[2017-01-08] MEDS: Famotidine 20 MG TABLET PO SCH (08:07)
--- NOTE | 2017-01-08 09:22 | Pre-Sedation Evaluation ---
Pre-sedation evaluation - Pre-sedation checklist Date of procedure: 01/08/17 Procedure: heart cath Recent Vitals: Last Vital Signs Temp 97.8 F 01/08/17 07:45 Pulse 63 01/08/17 07:45 Resp 16 01/08/17 07:45 BP 179/82 01/08/17 07:45 Pulse Ox 95 01/08/17 07:45 H&P (including ROS) documented in medical record: Yes Previous reaction to sedatives/anesthetics: No Dietary Status: NPO after Midnight Dentition: No loose teeth or bridges ASA Classification *see protocol: CLASS II-Mild systemic disease Plan of Care: Pt appropriate candidate for procedure/moderate/conscious sedation , Risks/benefits of procedure/sedation discussed w/ patient/family
[2017-01-08 10:30] LABS: Hepatitis B Surface Antigen Nonreactive (Nonreactive); Hepatitis C Virus Antibody Nonreactive (Nonreactive)
--- NOTE | 2017-01-08 11:18 | Event Note ---
Date of Encounter: 01/08/17 Time of Encounter: 11:13 - Cardiology Event Note Mr. Ambrocio is awaiting [facility] today for abnormal stress test. He denies recurrent chest pain. C/o abdominal bloating and gas pain this morning that is now relieved. B/p remains elevated after receiving losartan. Will increase dose. IV hydralizine ordered PRN. Patient and denies questions. brings bypass card from 1992. He had a CARMEN-mLAD, SVG-dLAD, SVG -RCA, SVG- PL CX.
[2017-01-08 11:21] LABS: HIV-1&2 Antibody & p24 Ag Nonreactive (Nonreactive)
--- NOTE | 2017-01-08 13:36 | Internal Med Progress Note ---
Date of Encounter: 01/08/17 Time of Encounter: 12:30 - Assessment and plan (1) Chest pain Current Visit: Yes Status: Acute Assessment and plan: Patient denies chest pain or shortness of breath at this time. Chest x-ray negative. Stress test abnormal-cardiology has been brought on board- plan is for a left heart catheter later today. We will continue to monitor the patient' s blood pressures. Cleared for procedure per oncology/hematology. History of CABG 4 in 1992. Echocardiogram revealing ejection fraction of 60% with mild diastolic dysfunction. Patient euvolemic on examination. ITS Impressions Chest X-Ray 01/06/17 17:31 IMPRESSION: 1. No acute cardiopulmonary disease. D/ / 01/06/2017 18:12:22 Dianne Sunshine MD / juan carlos Interpreting Provider: Dianne Sunshine MD Low Level [place] Date of Study: 01/07/2017 Impression: There is a perfusion defect during stress involving the basal-distal lateral wall and anterolateral wall representing mild-moderate ischemia. Low level exercise/ pharmacologic stress ECG is negative for ischemia at level of heart rate achieved. Gated EF = 65%. Findings communicated to ordering provider. Echo with Saline Contrast Date of Study: 01/07/2017 Impressions: LVEF 60%. Normal left ventricular size and systolic function. There is evidence of mild diastolic dysfunction of the left ventricle. Normal right ventricular size and function. Mild aortic regurgitation. Mild mitral regurgitation. No pulmonary hypertension. There is no evidence of a PFO with agitated saline contrast. (2) Abnormal stress test Current Visit: Yes Status: Acute (3) Leukopenia Current Visit: Yes Status: Chronic Assessment and plan: Chronic for this patient. Is followed at [facility]. and patient states that he has had an extensive workup including several MRIs and a bone marrow biopsy all unremarkable. Seen by oncology and cleared for left heart catheter (4) Thrombocytopenia Current Visit: Yes Status: Chronic Assessment and plan: Chronic, stable, no signs of active bleeding. See prior note for leukopenia (5) CAD (coronary artery disease) Current Visit: Yes Status: Chronic Qualifiers: Coronary Disease-Associated Artery/Lesion type: bypass graft [place] vs. transplanted heart: [place] heart Associated angina: with unspecified angina Qualified Code(s): I25.709 - Atherosclerosis of coronary artery bypass graft(s) , unspecified, with unspecified angina pectoris (6) Hypertension Current Visit: Yes Status: Chronic Assessment and plan: Uncontrolled. At home, patient is on carvedilol 25 mg twice a day, amlodipine 10 mg daily. Cardiology has added losartan 12.5 mg daily which was ineffective - will increase to 25mg and monitor. Utilize hydralazine IV as needed. SHAUNNA inhibitor cough noted. Patient stating he gets worked up when he has to have a lot of blood work and while he is in the hospital. This could also be a contributing factor. Patient is stating that he is exhausted and sleep deprived. Qualifiers: Hypertension type: essential hypertension Qualified Code(s): I10 - Essential (primary) hypertension (7) Hypertensive urgency Current Visit: Yes Status: Resolved (8) Hyperlipidemia Current Visit: Yes Status: Chronic Assessment and plan: Lipid panel unremarkable, recommend continue statin. Low-cholesterol diet. Qualifiers: Hyperlipidemia type: unspecified Qualified Code(s): E78.5 - Hyperlipidemia , unspecified (9) GERD (gastroesophageal reflux disease) Current Visit: Yes Status: Chronic Assessment and plan: Denies current symptoms. Qualifiers: Esophagitis presence: esophagitis presence not specified Qualified Code(s) : K21.9 - Gastro-esophageal reflux disease without esophagitis (10) DVT prophylaxis Current Visit: Yes Status: Acute Assessment and plan: Thrombocytopenia can be caused by/worsened by heparin, heparin discontinued yesterday and replaced with IPCs. - Subjective Interval history: Patient seen and examined. On examination, patient resting supine in bed conversing with his and guests. Patient stating that he is drained and exhausted and has not really slept in two days. He denies pain or shortness of breath at this time stating he recently received pain medication. He states he is hungry and denies concerns or questions regarding his upcoming [facility]. - Constitutional Vitals: Temp Pulse Resp BP Pulse Ox 97.8 F 66 16 172/74 96 01/08/17 11:31 01/08/17 13:07 01/08/17 11:31 01/08/17 13:07 01/08/17 11:31 General appearance: Present: cooperative, A&O X 3, pleasant, no acute distress, answers questions appropriately - Head Head exam: Present: atraumatic, normocephalic - Eye Eye exam: Present: PERRL, conjuntiva pink, sclera anicteric Pupils: Present: PERRL - Neck Neck exam general surgery: Present: supple, trachea midline. Absent: lymphadenopathy - Respiratory Respiratory exam: Present: CTAB. Absent: accessory muscle use, rales, respiratory distress, rhonchi, wheezes - Cardiovascular Cardiovascular exam: Present: RRR, +S1, +S2. Absent: diastolic murmur, gallop, rubs, systolic murmur - GI/Abdominal GI/Abdominal exam: Present: normal bowel sounds, soft, no peritoneal signs. Absent: distended, tenderness - Extremities Exam Extremities exam: Present: warm, radial pulses palpable and symmetrical. Absent : calf tenderness, cyanotic, pedal edema - Neurological Exam Neurological exam: Present: alert, CN II-XII intact, oriented X3, no focal deficits, strengths equal and symetr throughout. Absent: pronater drift, facial droop, speech deficit - Skin Skin exam: Present: dry, intact, normal color, warm Internal Medicine: Result - Labs CBC & Chem 7: 01/08/17 03:11 01/08/17 03:11 Labs: Short CBC 01/08/17 Range/Units 03:11 WBC 3.9 L (4.3-11.1) K/mcL Hgb 13.2 (12.9-16.9) g/dL Hct 40.2 (37.5-50.1) % Plt Count 77 L (140-400) K/mcL Neutrophils # 1.1 L (1.6-8.9) K/mcL BMP 01/08/17 03:11 Sodium 141 Potassium 3.6 Chloride 110 H Carbon Dioxide 23 BUN 20 Creatinine 0.97 Glucose 89 Calcium 9.1 - ABG Interpretation ABG results: PT/INR, D-dimer PT 13.0 Seconds (9.4-12.1) H 01/08/17 03:11 D-Dimer 647 ng/mLFEU (0-500) H 01/07/17 15:00 - Impressions Impressions Abdomen Ultrasound 01/08/17 08:30 IMPRESSION: 1. Examination is limited due to patient body habitus as well as overlying bowel gas. 2. Echogenic liver compatible with hepatic steatosis. There is suggestion of intrahepatic biliary ductal dilatation. Correlation with LFTs is recommended. 3. Gallbladder sludge without evidence of cholelithiasis or acute cholecystitis. 4. No splenomegaly. D/ / 01/08/2017 09:27:00 Onelia Santillan MD / bcaer Interpreting Provider: Onelia Santillan MD Consult Discharge Plan - Plan Referrals: Bruce Mclean MD [Primary Care Provider] - 01/16/17 10:15 am
[2017-01-08] MEDS ORDERED: Heparin 1,000 UNITS/500 mL NS 500 ML ONE (14:20)
[2017-01-08] MEDS ORDERED: *HR* Heparin 10,000 UNIT/10 ML VIAL ONE (14:20)
[2017-01-08] MEDS ORDERED: Nitroglycerin 1,000 MCG/10 ML VIAL IV ONE (14:20)
[2017-01-08] MEDS ORDERED: 0.9 % Sodium Chloride 1,000 ML ONE ×2 (14:20→15:25)
[2017-01-08] MEDS ORDERED: *HR* Midazolam HCl 2 MG/2 ML VIAL ONE (15:25)
[2017-01-08] MEDS ORDERED: *HR* FentaNYL (PF) 100 MCG/2 ML VIAL ONE (15:25)
--- NOTE | 2017-01-08 16:25 | Invasive Diagnostic Lab Proc ---
Name: Panfilo Ambrocio Date of Study: 01/08/2017 Date: 1935 Ht: 66.9in Medical Record#: [id number] Age: 81 Wt: 158.73lb Gender: Male BSA: 1.83 Order #: [id number] BMI: 24.91 Physicians Procedure Physician: Skinny Hernandez MD, [facility] Referring MD: Referring MD: Staff Name Position Time In Sites, Danae RT (R) Monitor 03:34 PM Eva Blank RT (R) Scrub 03:34 PM Jack Jalloh RN Anesthesia Technician 03:34 PM Indications Indication Abnormal Test - Stress Procedures Performed Procedure L HRT ART/GRFT ANGIO Pre-Procedure Checklist Informed consent is complete signed and on chart. H&P is on chart. ID band is on and ID verified with patient. Patient NPO for procedure The procedure was described for the patient and questions were answered. Blood Pressure: 179/82 ECG is on chart. Rhythm: NSR Plan of Care Patient will tolerate the procedure without complications. Adequate level of comfort will be maintained. Hemodynamics will remain stable Patient will recover from procedure without complications. Respiratory function will be maintained. Cardiac rhythm will remain stable. Patient temperature will be maintained. Patient and/or family have verbalized understanding of the procedure. Patient Education Intravenous Access Time IV Size Location DC'd Fluid/Drip Rate Units RN 18g 1 05/22" Patent On Arrival Rt Antecubital Allergies SULFA (sulfonamide) lisinopril Vital Signs Time BP (mmHg) HR (bpm) O2 Sat. RR (bpm) LOC 179 / 82 63 95 % 16 03:35 PM / % 5 = Fully awake and oriented or at pre-proc level 03:30 PM 179 / 88 75 99 % 22 03:33 PM 190 / 86 75 100 % 17 03:36 PM 154 / 68 70 99 % 22 03:39 PM 145 / 73 66 99 % 20 03:42 PM 148 / 70 68 99 % 22 03:45 PM 149 / 69 67 99 % 29 03:48 PM 161 / 76 69 99 % 13 03:51 PM 161 / 70 68 99 % 23 03:54 PM 160 / 76 58 99 % 22 03:57 PM 162 / 69 69 100 % 19 04:00 PM 166 / 81 75 99 % 25 04:03 PM 169 / 75 75 99 % 14 04:06 PM 171 / 82 71 98 % 14 04:09 PM 170 / 82 71 97 % 20 04:12 PM 160 / 72 % Procedural Medications Time Medication Dose Units Method Given By 03:34 PM Oxygen 2 L/min nasal cannula Jack Jalloh RN 03:35 PM Versed 2 mg Intravenous Jack Jalloh RN 03:35 PM Fentanyl 25 mcg Intravenous Jack Jalloh RN 03:41 PM Lidocaine 2% 15 ml Subcutaneous Skinny Hernandez MD, [facility] ASA Classification: CLASS II- Mild systemic disease (i.e. well-controlled diabetes, hypertension, asthma, cigarette smoking) Mp Score Preprocedure Postprocedure Activity 2- Moves 4 extremities sustained head lift Activity 2- Moves 4 extremities sustained head lift Circulation 2- SBP +/= 20 points of pre-anesthetic level Circulation 2- SBP +/= 20 points of pre-anesthetic level Consciousness 2- Awake and alert oriented x 3 Consciousness 2- Awake and alert oriented x 3 O2 Saturation 2- Able to maintain O2 satruation of 92% on room air O2 Saturation 2- Able to maintain O2 satruation of 92% on room air Respiratory 2- Able to deep breathe and cough well Respiratory 2- Able to deep breathe and cough well Total Score 10 Total Score 10 Contrast Agent: Isovue Diagnostic Contrast: 82 ml Total Contrast: 82 ml Fluoro Dose: 159 mGy Procedure Log Time Note Enter By 03:29 PM CathStat 03:29 PM Vitals capture started with the following parameters, Patient=Adult, Interval=3 min, Initial Mvhpdzyg=622 mmHg, Deflation Rate=5 mmHg, Cuff placed on Left Arm 03:29 PM Recorded ECG: HR=77 Condition=Condition 1 03:30 PM HR=75 bpm, YTLJ=179/88 mmhg, SpO2=99.0 %, Resp=22 B/min 03:33 PM HR=75 bpm, MBAR=633/86 mmhg, DsI4=065.0 %, Resp=17 B/min 03:34 PM Pt arrived to labor relations teacher 1 at 15:34 tsites 03:34 PM Danae Azevedo RT (R) Position: Monitor Time in: 15:34 tsites 03:34 PM Eva Blank RT (R) Position: Scrub Time in: 15:34 tsites 03:34 PM Jack Jalloh RN Position: Anesthesia Technician Time in: 15:34 tsites 03:34 PM Patient charges- Angio tray pack, Navilyst 3mm J, Pulse Oximetry and ACIST tubing and transducer tsites 03:34 PM Case Delayed No tsites 03:34 PM Physician arrived 15:34 tsites 03:34 PM Meet and greet completed tsites 03:34 PM Sign in performed according to hospital policy. tsites 03:34 PM Procedure start 15:34 tsites 03:34 PM Hair removed from procedure site in procedure lab using clippers. Bilateral groin prepped with Chloraprep by Si\\, safety strap applied then patient was draped. Skin intact. tsites 03:35 PM Time: 15:34 Oxygen on at 2 L/min per nasal cannula by Jack Jalloh RN tsites 03:35 PM Time: 15:35 Patient comfortable and pain free: Yes tsites 03:35 PM Time: 15:35LOC: 5 = Fully awake and oriented or at pre-proc level tsites 03:35 PM Clinical Presentation: Stable angina tsites 03:35 PM Time: 15:35 Versed 2 mg Intravenous Given by Jack Jalloh RN tsites 03:35 PM Time: 15:35 Fentanyl 25 mcg Intravenous Given by Jack Jalloh RN tsites 03:35 PM Pressure channel 2 zeroed. 03:36 PM HR=70 bpm, BVGL=579/68 mmhg, SpO2=99.0 %, Resp=22 B/min 03:37 PM Pressure channel 2 zeroed. 03:39 PM HR=66 bpm, UOTP=347/73 mmhg, SpO2=99 %, Resp=20 B/min 03:40 PM Time out performed according to hospital policy tsites 03:41 PM Time: 15:41 15 ml Lidocaine 2% to right groin Subcutaneous Given by Skinny Hernandez MD, [facility] tsites 03:42 PM HR=68 bpm, LKTN=155/70 mmhg, SpO2=99 %, Resp=22 B/min 03:42 PM Access obtained by percutaneous puncture. 5Fr 10cm Terum[place] sheath placed in right Femoral artery. [id number] tsites 03:43 PM 5Fr FR 4 catheter inserted over the wire [facility] tsites 03:43 PM 0.035 145cm Navilyst 3mmJ wire [id number] tsites 03:45 PM HR=67 bpm, XNJO=846/69 mmhg, SpO2=99 %, Resp=29 B/min 03:45 PM SVG to the LAD angio performed in multiple views. tsites 03:46 PM SVG to the 1st OM angio performed in multiple views. tsites 03:48 PM HR=69 bpm, RHHF=588/76 mmhg, SpO2=99 %, Resp=13 B/min 03:48 PM RCA angiography performed in multiple views. tsites 03:48 PM 0.035 260cm Navilyst 3mmJ wire [id number] tsites 03:48 PM Catheter removed tsites 03:48 PM 5Fr IM catheter inserted over the wire [id number] tsites 03:49 PM Recorded Pressure: Ao, HR=67, Condition=Condition 1 (Aorta) Ao 146/78/109 03:50 PM Time: 15:35 Patient comfortable and pain free: Yes tsites 03:50 PM Left ROBERT to the LAD angio performed in multiple views. tsites 03:51 PM Catheter removed tsites 03:51 PM 5Fr FL 4 catheter inserted over the wire DN tsites 03:51 PM HR=68 bpm, ISBS=327/70 mmhg, SpO2=99.0 %, Resp=23 B/min 03:51 PM Coronary Dominance: right tsites 03:51 PM Lesion found in Proximal RCA. Pre Stenosis: 100 Pre TOSHIA Flow: tsites 03:51 PM Right Coronary, Right Posterior Descending Arteries with Right Posterolateral and Acute Marginal branches with 100 % stenosis. If graft is supplying this area, 0 % stenosis tsites 03:52 PM LCA angiography performed in multiple views. tsites 03:52 PM Recorded Pressure: Ao, HR=70, Condition=Condition 1 (Aorta) Ao 143/73/105 03:52 PM Lesion found in Proximal LAD. Pre Stenosis: 100 Pre TOSHIA Flow: tsites 03:53 PM Lesion found in Proximal Circumflex. Pre Stenosis: 90 Pre TOSHIA Flow: tsites 03:53 PM Lesion found in Mid Circumflex. Pre Stenosis: 90 Pre TOSHIA Flow: tsites 03:53 PM 5Fr Pigtail catheter inserted over the wire DN tsites 03:53 PM Proximal Left Anterior Descending Coronary Artery with 100% stenosis. If graft is supplying this territory, 0 % stenosis. tsites 03:53 PM Circumflex, Obtuse Marginal, Left Posterior Descending, and Left Posterolateral Coronary Arteries with 90 % stenosis. If graft is supplying this area, 0 % stenosis tsites 03:54 PM HR=58 bpm, JBCS=529/76 mmhg, SpO2=99 %, Resp=22 B/min 03:54 PM Catheter selectively placed in left ventricle tsites 03:54 PM Bolus angiogram of left Ventricle complete: 10 ml/sec for a total of 30 mls tsites 03:54 PM Recorded Pressure: LV, HR=69, Condition=Condition 1 (Left Ventricle) LV 170/-1/10 03:54 PM Recorded Pressure: LV, HR=70, Condition=Condition 1 (Left Ventricle) LV 78/-54/-38 03:55 PM Recorded Pressure: LV, Ao, HR=75, Condition=Condition 1 (Left Ventricle) LV 181/46/97, (Aorta) Ao 160/60/99 03:57 PM HR=69 bpm, UYOO=683/69 mmhg, NlX7=745.0 %, Resp=19 B/min 03:57 PM 5Fr MPA catheter inserted over the wire [id number] tsites 03:57 PM SVG to the RPLV angio performed in multiple views. tsites 03:58 PM Catheter removed tsites 04:00 PM HR=75 bpm, HWST=234/81 mmhg, SpO2=99 %, Resp=25 B/min 04:02 PM Bolus angiogram of right Femoral complete: 2 ml/sec for a total of 4 mls tsites 04:03 PM HR=75 bpm, RYDG=726/75 mmhg, SpO2=99 %, Resp=14 B/min 04:06 PM HR=71 bpm, LGGR=369/82 mmhg, SpO2=98 %, Resp=14 B/min 04:09 PM HR=71 bpm, GERL=461/82 mmhg, SpO2=97 %, Resp=20 B/min 04:09 PM Procedure completed at 16:09 tsites 04:09 PM Sign out completed: Radiation Dose 159 mGy Fluoro Time: 4.0 Isovue 370 - 200ml contrast 82 ml given by Skinny Hernandez MD, [facility]. Complications: NoneCardiac Rehab Consult needed: NoConfirmed administered medications: Yes tsites 04:09 PM Isovue 370 - 200ml,1 Bottle(s) used. tsites 04:09 PM Arterial sheath pulled, Mynx closure device used and was Successful S/N. tsites 04:09 PM Post ECG NSR tsites 04:10 PM Post Blood Pressure 170/82 tsites 04:10 PM 16:10 Post Pulses Bilateral DP & PT 1+ tsites 04:10 PM Information taught Cardiac Cath and Mynx tsites 04:10 PM Education needs Procedure, Plan of Care, and Responsibilities of Patient in Care tsites 04:10 PM Learning barriers :None tsites 04:10 PM Education Methods Verbal tsites 04:10 PM Education evaluation Able to repeat information tsites 04:10 PM Site status No bleeding/hematoma - Rt Groin as reported by Eav Blank RT (R) at 16:10 tsites 04:10 PM Opsite applied tsites 04:11 PM Delay to floor No tsites 04:11 PM Patient out of room: 16:11 tsites 04:11 PM Family placed in consult room. tsites 04:12 PM LWIH=098/72 mmhg 04:12 PM Report given to lilliam MURRAY Pt taken to 3B Room #14. 16:12 tsites 04:12 PM Delay to floor No tsites 04:12 PM Patient out of room: 16:12 tsites Complications Complication None Hemodynamics Pressures Site Systolic/A Wave Diastolic/V Wave Mean AO 146 78 109 AO 143 73 105 LV 170 -1 10 LV 78 -54 -38 LV 181 46 97 AO 160 60 99 Post Procedure Information Blood Pressure: 170/82 mmHg Rhythm: NSR Post procedural instructions were given Closure Device Time Device Success/Fail 01/08/2017 4:13:00 PM MynxGrip Successful Site Checks Time Location Status Staff Sheath In? Note 04:10 PM Rt Groin No bleeding/hematoma Eva Blank RT (R) Pulses Time Site Pre-Procedure Post-Procedure Note Bilateral radial 2+ Bilateral DP & PT 1+ 4:10:00 PM Bilateral DP & PT 1+ Updated by Danae Azevedo RT (R) on 01/08/2017 4:17:58 PM Danae Azevedo RT electronically signed on 01/08/2017 4:19:43 PM with status of Final
--- NOTE | 2017-01-08 16:27 | Event Note ---
Date of Encounter: 01/08/17 Time of Encounter: 16:30 - Cardiology Event Note sp 1992 CABG. Chronic thrombocytopenia. Stress - anterolateral ischemia CAR[place] mid LAD patent with competitive flow from the SVG to distal LAD SVG distal LAD patent with 70% proximal stenosis Distal LAD with collaterals to the R PLB SVG OM patent but OM is small and diffusely diseased SVG distal RCA with 95% proximal stenosis. Contralateral collaterals Severe [place] CAD No indication for revascularization at this time. Recommend Imdur 60mg daily and NTG SL 0.4mg Q5min prn chest pain.
--- NOTE | 2017-01-08 16:40 | Event Note ---
Date of Encounter: 01/08/17 Time of Encounter: 16:35 - Cardiology Event Note Mr. Ambrocio is s/p LHC. No complications. Findings as described in event note below by Dr. Hernandez. Imdur added. D/t thrombocytopenia recommend watching overnight. Cardiology will sign off. Recommend patient follow with his cardioloist Dr. Regalado in one week. Call with questions.
--- NOTE | 2017-01-08 17:55 | Discharge Summary ---
Date of Encounter: 01/08/17 Time of Encounter: 17:30 - Discharge Diagnosis (1) Chest pain Priority: Primary Status: Resolved Comments: Patient denied chest pain or shortness of breath at this time at time of discharge. Chest x-ray negative. Stress test abnormal-cardiology has been brought on board- left heart catheter which revealed severe CAD however no areas for intervention were indicated. Recommend medical management with Imdur and follow up outpatient (2) Abnormal stress test Priority: Primary Status: Acute (3) Leukopenia Priority: Secondary Status: Chronic Comments: Chronic, stable, has been following outpatient with Christy (4) Thrombocytopenia Priority: Secondary Status: Chronic (5) CAD (coronary artery disease) Priority: Secondary Status: Chronic Qualifiers: Coronary Disease-Associated Artery/Lesion type: bypass graft [place] vs. transplanted heart: [place] heart Associated angina: with unspecified angina Qualified Code(s): I25.709 - Atherosclerosis of coronary artery bypass graft(s) , unspecified, with unspecified angina pectoris (6) Hypertension Priority: Secondary Status: Chronic Comments: Uncontrolled. At home, patient is on carvedilol 25 mg twice a day, amlodipine 10 mg daily. Cardiology added losartan 12.5 mg daily which was ineffective- then increased to 25mg. SHAUNNA inhibitor cough noted. Patient stating he gets worked up when he has to have a lot of blood work and while he is in the hospital. This could also be a contributing factor. Patient is stating that he is exhausted and sleep deprived. Recommended blood pressure checks at home, close outpatient follow-up. Qualifiers: Hypertension type: essential hypertension Qualified Code(s): I10 - Essential (primary) hypertension (7) Hypertensive urgency Priority: Primary Status: Resolved (8) Hyperlipidemia Priority: Secondary Status: Chronic Comments: Lipid panel unremarkable, recommend continue statin. Low-cholesterol diet. Qualifiers: Hyperlipidemia type: unspecified Qualified Code(s): E78.5 - Hyperlipidemia , unspecified (9) GERD (gastroesophageal reflux disease) Priority: Secondary Status: Chronic Comments: Denied current symptoms Qualifiers: Esophagitis presence: esophagitis presence not specified Qualified Code(s) : K21.9 - Gastro-esophageal reflux disease without esophagitis (10) DVT prophylaxis Priority: Primary Status: Acute Comments: Thrombocytopenia can be caused by/worsened by heparin, heparin discontinued while admitted and replaced with IPCs. - Discharge Medications Prescriptions: Nitroglycerin 0.4 mg SL Q5MIN PRN #30 PRN Reason: Chest Pain Isosorbide MONOnitrate (24 HR) [Imdur] 60 mg PO DAILY #30 Losartan [Cozaar] 25 mg PO DAILY #30 tab Home Medications: Amlodipine Besylate 10 mg PO DAILY 01/13/16 [History] Aspirin Enteric Coated [Aspirin EC] 81 mg PO DAILY 01/13/16 [History] Atorvastatin Calcium [Lipitor] 20 mg PO HS 01/13/16 [History] Carvedilol [Coreg] 25 mg PO BID 01/13/16 [History] Multivitamin [Multi-Day Vitamins] 1 each PO DAILY 01/06/17 [History] Isosorbide MONOnitrate (24 HR) [Imdur] 60 mg PO DAILY #30 01/08/17 [Rx] Losartan [Cozaar] 25 mg PO DAILY #30 tab 01/08/17 [Rx] Nitroglycerin 0.4 mg SL Q5MIN PRN #30 01/08/17 [Rx] Allergies/Adverse Reactions: 3 Allergy/AdvReac Type Severity Reaction Status Date / Time lisinopril Allergy Cough Verified 01/13/16 18:43 Sulfa (Sulfonamide Allergy Hives Verified 01/13/16 18:43 Antibiotics) Procedures/tests Complete & Pending: Procedures Performed prior 72 hours Category Date Time Status Left Heart Cath [CL Cardiac Catheterization] [CL] Dredge Engineer 01/07/17 18:58 Ordered Routine NM rosemary perf SPECT multi [NM] Routine Exams 01/06/17 20:36 Taken US abdomen limited [US] Routine Exams 01/08/17 08:30 Draft EV echocardiogram Routine Y 01/07/17 20:36 Completed SP pharm nuclear stress Routine Y 01/07/17 07:10 Completed Date of admission: 01/06/17 19:22 Primary care physician: Bruce Mclean MD Consults: 01/07/17 11:43 Consult to Cardiology [CONS] Routine Comment: Consulting Provider: Cardiology Jaida Reason for Consult: abnl stress Time Notified: 11:43 Call Completed: Yes 01/07/17 11:56 Consult to Oncology Hematology [CONS] Routine Consulting Provider: Tiffany Conte Reason for Consult: bicytopenia Call Completed: Yes Discharging clinician: Tiffanie Carreon Anticipated date of discharge: 01/08/17 - Patient Status Disposition: Home, Self-Care Condition: Fair Functional capacity at discharge: independent ambulation Overall status at discharge: patient is progressing back to baseline - Discharge Instructions Follow Up With: Bruce Mclean MD [Primary Care Provider] - 01/16/17 10:15 am Silvano Regalado MD [Non-Partnered Physician] - Additional Instructions: Follow-up with primary care provider as scheduled, follow up with media center specialist within 1 week - Diet and Activity Activity: increase activity as tolerated Diet: low fat, low cholesterol, low salt diet Hospital course: Mr. Ambrocio is a 81 year old male with past medical history hypertension, hyperlipidemia, CAD status post CABG 4 in 1992, carotid endarterectomy, former tobacco abuse. Patient presented to the emergency department chief complaint of left arm and chest discomfort. Patient stating he noticed intermittent left arm pain and aching on the morning of presentation. He saw his primary media center specialist in [place] and had an EKG and was told that he was fine. He got back home, he was getting his mail and he began to experience shortness of breath and aching in the left side of his chest and his left upper arm. Discomfort was aggravated by movement and alleviated with rest. Patient stating this discomfort felt similar to his prior angina when he had his CABG. He denied diaphoresis, lightheadedness, syncope, palpitations, worsening edema or fatigue. Discomfort resolved prior to presentation to the emergency department. Patient's blood pressure was elevated upon arrival when he freely admitted to [place] hypertension stating his blood pressure is normal at home but every time he sees a provider, his blood pressure is high. Patient also has known chronic leukopenia and thrombocytopenia which is being investigated by hematology at [facility] with negative workup thus far. Workup in emergency department unremarkable other than accelerated hypertension. No ECG changes. Patient was admitted to the hospitalist service for further evaluation and management. Chest x-ray negative. Echocardiogram revealing ejection fraction of 60% with mild diastolic dysfunction. Patient euvolemic on examination and denied shortness of breath above his normal throughout this admission. He had a stress test that was abnormal cardiology was brought on board and the decision was made to proceed with a left heart catheter. Left heart catheter revealed severe CAD but not amenable to intervention. Recommendation was for medical management and the patient was started on Imdur as well as the use of nitroglycerin as needed. Patient denied chest pain at time of discharge. He was also started on losartan for his hypertension but patient endorsed being stressed out and sleep deprived while admitted which could be contributing to the patient's hypertension while admitted. He was instructed to check his blood pressure daily at home and follow up closely within 1 week with his primary media center specialist Dr. Regalado. He has an SHAUNNA inhibitor intolerance with coughing. He was discharged home in stable condition with close outpatient follow-up with his primary care provider and primary media center specialist recommended. ITS Impressions Chest X-Ray 01/06/17 17:31 IMPRESSION: 1. No acute cardiopulmonary disease. D/ / 01/06/2017 18:12:22 Dianne Sunshine MD / juan carlos Interpreting Provider: Dianne Sunshine MD Low Level Regaden[place]on Date of Study: 01/07/2017 Impression: There is a perfusion defect during stress involving the basal-distal lateral wall and anterolateral wall representing mild-moderate ischemia. Low level exercise/ pharmacologic stress ECG is negative for ischemia at level of heart rate achieved. Gated EF = 65%. Findings communicated to ordering provider. Echo with Saline Contrast Date of Study: 01/07/2017 Impressions: LVEF 60%. Normal left ventricular size and systolic function. There is evidence of mild diastolic dysfunction of the left ventricle. Normal right ventricular size and function. Mild aortic regurgitation. Mild mitral regurgitation. No pulmonary hypertension. There is no evidence of a PFO with agitated saline contrast. [facility] Impressions: sp 1992 CABG. Chronic thrombocytopenia. Stress - anterolateral ischemia CARMEN mid LAD patent with competitive flow from the SVG to distal LAD SVG distal LAD patent with 70% proximal stenosis Distal LAD with collaterals to the R PLB SVG OM patent but OM is small and diffusely diseased SVG distal RCA with 95% proximal stenosis. Contralateral collaterals Severe [place] CAD No indication for revascularization at this time. Recommend Imdur 60mg daily and NTG SL 0.4mg Q5min prn chest pain. 2 Documented By: Skinny Hernandez MD Signed By: <Electronically signed by Skinny Hernandez> [id number] - Time Spent with Patient Total time spent providing and/or coordinating discharge services: - Constitutional Vitals: Temp Pulse Resp BP Pulse Ox 97.4 F L 67 16 168/55 96 01/08/17 17:36 01/08/17 17:36 01/08/17 17:36 01/08/17 17:36 01/08/17 17:36 General appearance: Present: cooperative, A&O X 3, pleasant, no acute distress, answers questions appropriately - Head Head exam: Present: atraumatic, normocephalic - Eye Eye exam: Present: PERRL, conjuntiva pink, sclera anicteric Pupils: Present: PERRL - Neck Neck exam general surgery: Present: supple, trachea midline. Absent: lymphadenopathy - Respiratory Respiratory exam: Present: CTAB. Absent: accessory muscle use, rales, respiratory distress, rhonchi, wheezes - Cardiovascular Cardiovascular exam: Present: RRR, +S1, +S2. Absent: diastolic murmur, gallop, rubs, systolic murmur - GI/Abdominal GI/Abdominal exam: Present: normal bowel sounds, soft, no peritoneal signs. Absent: distended, tenderness - Extremities Exam Extremities exam: Present: warm, radial pulses palpable and symmetrical. Absent : calf tenderness, cyanotic, pedal edema - Neurological Exam Neurological exam: Present: alert, CN II-XII intact, normal gait, oriented X3, no focal deficits, strengths equal and symetr throughout. Absent: pronater drift, facial droop, speech deficit - Skin Skin exam: Present: dry, intact, pallor, warm
[2017-01-08 19:56] VITALS: BP 149/65
[2017-01-09] MEDS ORDERED: Isosorbide MONOnitrate (24 HR) 60 MG TAB.ER.24H PO SCH (09:00)
== END 2017-01-08 20:02 | disposition home or self-care (01) ==
LOC: 3BNU 17:14 → EMEROO 17:14 → 3BNU 20:38
PROVIDERS: ADMIT Internal Medicine; ATTEND Registered Nurse